=== PATIENT | female | born 1955 | race Caucasian/White ===

== ENCOUNTER 2018-01-10 15:32 | Outpatient (CLI) | payer OTHER ==
--- NOTE | 2018-01-14 09:02 | Mammography Report ---
Reason: SCREENING MAMMO Procedure Date: 01/10/2018 Accession Number: [id number] / [id number] Procedure: KIM - Screening Mammo w/Sanju CPT Code: FULL RESULT: EXAM: Screening Mammo w/Sanju DATE: 01/10/2018 4:56 PM CLINICAL HISTORY: 62 year-old nulliparous female with history of negative breast biopsy at the age of 20 presents for screening. TECHNIQUE: Bilateral CC and MLO views were obtained. COMPARISON: 04/11/2014, 10/23/2008. FINDINGS: The breasts demonstrate heterogeneously dense fibroglandular parenchyma bilaterally. A well-circumscribed isodense ovoid nodules in appearance suggestive of intramammary lymph node in the inferior right breast at the 5:00 position is stable dating back to 2008, typically benign. Interval development of a coarse typically benign appearing right breast calcification. No suspicious masses, clustered microcalcifications, or regions of architectural distortion are identified. IMPRESSION: Benign findings RECOMMENDATION: Routine annual screening unless otherwise clinically indicated. BIRADS CATEGORY 2: Benign findings STANDARD QUALIFYING STATEMENTS: 1. This examination was not reviewed with the aid of Computer-Aided Detection (CAD). 2. A negative or benign imaging report should not delay biopsy if clinically suspicious findings are present. Consider surgical consultation if warranted. More than 5% of cancers are not identified by imaging. 3. Dense breasts may obscure an underlying neoplasm. 4. This examination was reviewed with the aid of 3D breast imaging (tomosynthesis).
== END 2018-01-10 15:33 | disposition home or self-care (01) ==
LOC: DI 15:32
PROVIDERS: ATTEND Physician Assistant
DX: Z12.31 Encounter for screening mammogram for malignant neoplasm of breast (principal)
CPT/HCPCS: 77063; 77067

== ENCOUNTER 2021-10-20 08:00 | Outpatient (CLI) | payer MEDICARE, OTHER ==
[2021-10-20 16:26] LABS: BASOPHILS % (AUTO) 0.6 %; EOSINOPHILS # (AUTO) 0.2 10^3/uL (0.0-0.7); EOSINOPHILS % (AUTO) 2.4 %; HCT - HEMATOCRIT 41.6 % (37.0-47.0); HGB - HEMOGLOBIN 13.5 g/dL (12.0-16.0); LYMPHOCYTES # (AUTO) 1.3 10^3/uL (1.5-3.5); LYMPHOCYTES % (AUTO) 18.9 %; MEAN CORPUSCULAR HEMOGLOBIN 29.9 pg (27.0-31.0); MEAN CORPUSCULAR HGB CONC 32.5 g/dL (32.0-36.0); MEAN PLATELET VOLUME 11.4 fL (7.9-10.8); MONOCYTES # (AUTO) 0.5 10^3/uL (0.0-1.0); MONOCYTES % (AUTO) 6.6 %; NEUTROPHILS # (AUTO) 5.1 10^3/uL (1.5-6.6); NEUTROPHILS % (AUTO) 71.2 %; PLT - PLATELET COUNT 184 10^3/uL (130-450); RED BLOOD COUNT 4.52 10^6/uL (4.20-5.40); RED CELL DISTRIBUTION WIDTH 11.9 % (12.0-15.0); WHITE BLOOD COUNT 7.1 x10^3/uL (4.8-10.8)
[2021-10-20 16:31] LABS: CREATININE,URINE 22.5 mg/dL; MICROALBUM/CREATININE RATIO,UR 8.9 ug/mg (<30.0); MICROALBUMIN,URINE 0.2 mg/dL (0-300.0)
[2021-10-20 16:36] LABS: ALBUMIN 3.9 g/dL (3.2-5.5); ALBUMIN/GLOBULIN RATIO 1.2 (1.0-2.2); ALKALINE PHOSPHATASE 61 IU/L (42-121); ALT ALANINE AMINOTRANSFERASE 15 IU/L (10-60); AST ASPARTATE AMINOTRANSFERASE 15 IU/L (10-42); BILIRUBIN,TOTAL 0.8 mg/dL (0.2-1.0); BUN - BLOOD UREA NITROGEN 13 mg/dL (6-20); CALCIUM 9.1 mg/dL (8.5-10.3); CARBON DIOXIDE - CO2 30 mmol/L (21-32); CHLORIDE 100 mmol/L (101-111); CHOL/HDL RATIO 3.6 (<4.4); CHOLESTEROL 183 mg/dL; CREATININE 0.8 mg/dL (0.4-1.0); GFR - MDRD 72 (>89); GLUCOSE 131 mg/dL (70-100); HDL CHOLESTEROL 51 mg/dL; LDL CHOLESTEROL,CALCULATED 103 mg/dL; POTASSIUM 4.3 mmol/L (3.5-5.0); SODIUM 138 mmol/L (135-145); TOTAL PROTEIN 7.1 g/dL (6.7-8.2); TRIGLYCERIDES 147 mg/dL; VLDL CHOLESTEROL 29 mg/dL
[2021-10-20 20:22] LABS: ESTIMATED AVERAGE GLUCOSE 143 mg/dL (70-100); HEMOGLOBIN A1c% 6.6 % (4.27-6.07)
== END 2021-10-20 23:59 | disposition home or self-care (01) ==
LOC: LAB.R 08:00
PROVIDERS: ATTEND Internal Medicine
DX: Z00.00 Encounter for general adult medical examination without abnormal findings (principal); F41.9 Anxiety disorder, unspecified; F32.A Depression, unspecified; E11.9 Type 2 diabetes mellitus without complications; A60.00 Herpesviral infection of urogenital system, unspecified; E78.5 Hyperlipidemia, unspecified; I10 Essential (primary) hypertension; M54.50 Low back pain, unspecified; M72.2 Plantar fascial fibromatosis
CPT/HCPCS: 80053; 80061; 82043; 82570; 83036; 83721; 84443; 85025

== ENCOUNTER 2023-05-09 17:19 | Emergency (ER) | payer MEDICARE ==
--- NOTE | 2023-05-09 18:05 | ED Physician Documentation ---
History of Present Illness - Stated complaint Stated Complaint: FACE NUMBNESS/HIGH BP - Chief complaint Chief Complaint: Neuro - Additonal information Additional information: 68-year-old female presents emergency department with paresthesias to the left portion of her face that has now fully resolved. Patient says that she realized she missed her blood pressure medication yesterday and she has been quite hypertensive throughout the day checking her blood pressure frequently. The left facial paresthesia does not stay constantly she noticed that for a couple hours then it fully resolved and then she rechecked her blood pressure and it was high again and then she noticed the left facial paresthesias, and again. She has no unilateral weakness no facial droop able to speak in full sentences she denies any chest pain shortness of breath. She does endorse also in chronic paresthesia to the left hand but she says that this has been unchanged for months. PD PAST MEDICAL HISTORY - Past Medical History Cardiovascular: Hypertension, High cholesterol - Past Surgical History Past Surgical History: No - Present Medications Home Medications: Ambulatory Orders Medication Instructions Recorded Confirmed Metoprolol Tartrate 50 mg PO BID 07/10/15 05/09/23 Simvastatin 40 mg PO DAILY 07/10/15 05/09/23 - Allergies Allergies/Adverse Reactions: Allergies Allergy/AdvReac Type Severity Reaction Status Date / Time No Known Drug Allergies Allergy Verified 05/09/23 17:33 - Social History Does the pt smoke?: No Smoking Status: Never smoker Does the pt have substance abuse?: No - Immunizations Immunizations are current?: Yes PD ED PE NORMAL - Vitals Vital signs reviewed: Yes - General General: Alert and oriented X 3, No acute distress, Well developed/nourished, Other (Obese) - HEENT HEENT: Atraumatic, PERRL, EOMI, Ears normal, Moist mucous membranes, Pharynx benign - Neck Neck: No bony TTP - Cardiac Cardiac: RRR, No murmur, No gallop, Strong equal pulses - Respiratory Respiratory: No respiratory distress, Clear bilaterally - Abdomen Abdomen: Normal bowel sounds, Non tender, Non distended - Derm Derm: Normal color, Warm and dry, No rash - Extremities Extremities: No deformity, Other (Bilateral 2+ pitting edema) - Neuro Neuro: Alert and oriented X 3, account manager relief 2-12 intact, No motor deficit, No sensory deficit, Normal speech Eye Opening: Spontaneous Motor: Obeys Commands Verbal: Oriented GCS Score: 15 - Psych Psych: Other (Very anxious) Results - Vitals Vitals: Vital Signs - 24 hr 05/09/23 05/09/23 05/09/23 17:26 19:30 20:07 Temperature 36.9 C Heart Rate 100 89 89 Respiratory 20 16 16 Rate Blood Pressure 214/100 H 181/102 H 193/103 H O2 Saturation 99 94 94 Oxygen O2 Source Room air - Labs Labs: Laboratory Tests 05/09/23 05/09/23 05/09/23 17:00 17:00 18:47 WBC 6.7 RBC 4.71 Hgb 13.7 Hct 42.4 MCV 90.0 MCH 29.1 MCHC 32.3 RDW 11.7 L Plt Count 174 MPV 10.1 Neut # (Auto) 4.9 Lymph # (Auto) 1.1 L [place] # (Auto) 0.6 Eos # (Auto) 0.0 Baso # (Auto) 0.0 Absolute Nucleated RBC 0.00 Nucleated RBC % 0.0 Sodium 139 Potassium 4.4 Chloride 104 Carbon Dioxide 28 Anion Gap 7.0 BUN 14 Creatinine 0.8 Estimated GFR (MDRD) 72 L Glucose 144 H Calcium 10.1 Magnesium 1.8 Total Bilirubin 0.5 AST 22 ALT 21 Alkaline Phosphatase 58 Troponin I High Sens 4.7 Total Protein 7.4 Albumin 4.4 Globulin 3.0 Albumin/Globulin Ratio 1.5 PD Medical Decision Making - ED course ED course: Patient presents the emergency department for left facial paresthesias that come and go. Patient said that she missed her metoprolol last night and has been checking her blood pressure all day because she is very worried about her hypertension. Her blood pressure has been quite elevated systolically in the 200s which patient says that she has never seen this high before. CBC is unremarkable no leukocytosis no anemia. Chemistry is also fairly unremarkable GFR 74 and other than that all labs are within normal limits. Troponin is found to be 4.7 given that this started first thing in the morning I did not feel the need to do a delta troponin at this time. Patient adamantly declines any shortness of breath no chest pain no nausea or vomiting. Since has been here the paresthesias have not returned. Patient's blood pressure remains hypertensive but she has not taken her evening medications I told her to go ahead and take these now which she has with her. Patient is taking 50 mg of metoprolol Tartar prior to discharge. She also says that she is quite anxious but she says that she has Ativan at home that she is can go home and take to see if this helps calm her down. Patient strongly encouraged to follow-up with primary care provider to only check blood pressures in the morning 1 hour after she is taken her blood pressure medication to see if there needs to be any sort of blood pressure medication adjustment. Patient said that she is also working on her weight because she denies that this also contributes to her hypertension. She is urinating without any difficulty and not worried about a hypertension emergency given that she has no other symptoms no vision changes she is able to urinate without any difficulty and her labs are unremarkable. Patient given strict ER return precautions all questions answered she is completely neurologically intact I am not worried about this being a possible stroke patient told to follow-up with primary care provider any further workup indicated for the symptoms that she is currently describing. Departure - Departure Disposition: 01 Home, Self Care Clinical Impression: Facial paresthesia Instructions: ED Paraesthesias Comments: Thank you for trusting us with your care. We have completed labs including a troponin level to make sure that you are heart is not leaking any cardiac enzymes and everything has come back normal. As we discussed I recommend taking your blood pressure first thing in the morning before you take your blood pressure medications and then 1 hour after you take your blood pressure medication use this data to bring to your primary care provider to see if you need to make any adjustments with your blood pressure medications. I would focus on doing some deep breathing and calming exercises when you are starting to feel anxious and take your Ativan that you have at home as needed. Please come back to the emergency department if you are having worsening numbness and tingling to your face that does not go away and progresses to weakness affecting 1 side of your body, chest pain, shortness of breath, or any other concerning symptoms. Follow-up with your primary care provider to see if your blood pressure medications need to be adjusted. Forms: PCP List Discharge Date/Time: 05/09/23 20:10
[2023-05-09 19:05] LABS: BASOPHILS % (AUTO) 0.4 %; EOSINOPHILS % (AUTO) 0.4 %; HCT - HEMATOCRIT 42.4 % (37.0-47.0); HGB - HEMOGLOBIN 13.7 g/dL (12.0-16.0); LYMPHOCYTES # (AUTO) 1.1 10^3/uL (1.5-3.5); LYMPHOCYTES % (AUTO) 16.8 %; MEAN CORPUSCULAR HEMOGLOBIN 29.1 pg (27.0-31.0); MEAN CORPUSCULAR HGB CONC 32.3 g/dL (32.0-36.0); MEAN PLATELET VOLUME 10.1 fL (7.9-10.8); MONOCYTES # (AUTO) 0.6 10^3/uL (0.0-1.0); MONOCYTES % (AUTO) 8.2 %; NEUTROPHILS # (AUTO) 4.9 10^3/uL (1.5-6.6); NEUTROPHILS % (AUTO) 73.8 %; PLT - PLATELET COUNT 174 10^3/uL (130-450); RED BLOOD COUNT 4.71 10^6/uL (4.20-5.40); RED CELL DISTRIBUTION WIDTH 11.7 % (12.0-15.0); WHITE BLOOD COUNT 6.7 x10^3/uL (4.8-10.8)
[2023-05-09 19:09] LABS: MAGNESIUM 1.8 mg/dL (1.7-2.3)
[2023-05-09 19:25] LABS: ALBUMIN 4.4 g/dL (3.2-5.5); ALBUMIN/GLOBULIN RATIO 1.5 (1.0-2.2); BILIRUBIN,TOTAL 0.5 mg/dL (0.2-1.0); CALCIUM 10.1 mg/dL (8.5-10.3); CREATININE 0.8 mg/dL (0.6-1.3); POTASSIUM 4.4 mmol/L (3.5-4.5); TOTAL PROTEIN 7.4 g/dL (6.4-8.9)
[2023-05-09 20:15] VITALS: BP 193/103; O2SAT 94
== END 2023-05-09 20:10 | disposition home or self-care (01) ==
LOC: ED 17:19
DX: I10 Essential (primary) hypertension (principal); R20.2 Paresthesia of skin
CPT/HCPCS: 36415; 80053; 83735; 84484; 85025; 99283

== ENCOUNTER 2023-05-10 11:07 | Outpatient (CLI) | payer MEDICARE ==
--- NOTE | 2023-05-11 10:33 | Mammography Report ---
BILATERAL DIGITAL SCREENING MAMMOGRAM 3D/2D: 05/10/2023 CLINICAL: Routine screening. Comparison is made to exams dated: 01/10/2018 mammogram and 04/11/2014 mammogram - [facility]. Both breasts are heterogeneously dense, which may obscure small masses (category c / 51-75% glandular tissue). No significant masses, calcifications, or other findings are seen in either breast. There has been no significant interval change. IMPRESSION: NEGATIVE There is no mammographic evidence of malignancy. A 1 year screening mammogram is recommended. Based on the Tyrer Cuzick model (a risk assessment model) the patient's lifetime risk is 9.3% and her 10 year risk is 4.9%. According to the ACR, ACS, and NCCN guidelines, an annual breast MRI exam brandi g with mammogram is recommended if the patient's lifetime risk is 20% or greater. This exam was interpreted at Station ID: [id number]. NOTE: For mammograms, a report in lay terms will be sent to the patient. Approximately 15% of breast malignancies will not be visualized mammographically. In the management of a palpable breast mass, a negative mammogram must not discourage biopsy of a clinically suspicious lesion. Electronically Signed By: Ganga wu/radha:05/10/2023 18:55:40 letter sent: No_Letter ACR BI-RADS Category 1: Negative 3341F PARENCHYMAL PATTERN: (D) - The breast(s) demonstrate(s) heterogeneously dense fibroglandular ori trinh. BI-RADS CATEGORY: (1) - 1 RECOMMENDATION: (ANNUAL) - Recommend routine annual screening mammography. [id number] 1 year screening LATERALITY: (B)
== END 2023-05-10 11:08 | disposition home or self-care (01) ==
LOC: DI 11:07
PROVIDERS: ATTEND Internal Medicine
DX: Z12.31 Encounter for screening mammogram for malignant neoplasm of breast (principal); R92.333 Mammographic heterogeneous density, bilateral breasts

== ENCOUNTER 2023-06-07 12:12 | Outpatient (CLI) | payer MEDICARE ==
[2023-06-07] MEDS ORDERED: iohexoL-300 100 ML VIAL ONE (12:15)
[2023-06-07] MEDS: iohexoL-300 100 ML VIAL IVP ONE (12:38)
--- NOTE | 2023-06-07 20:39 | CT Report ---
PROCEDURE: Head WO INDICATIONS: HYPERTENSION TECHNIQUE: Noncontrast 4.5 mm thick angled axial sections acquired from the foramen magnum to the vertex. For r adiation dose reduction, the following was used: automated exposure control, adjustment of mA and/or kV according to patient size. COMPARISON: Correlation is made with the accompanying imaging. FINDINGS: Image quality: Excellent. CSF spaces: Basal cisterns are patent. No extra-axial fluid collections. Ventricles are normal in size and shape. Brain: No midline shift. No intracranial masses or hemorrhage. [place]-white matter interface is norm al. Age-appropriate brain parenchymal volume loss and chronic small vessel ischemic change can be se en. Skull and face: Calvarium and visualized facial bones are intact, without suspicious lesions. Sinuses: Visualized sinuses and mastoids are clear. IMPRESSION: Unremarkable noncontrast head CT for age. Reviewed by: aMtthew Lopez MD on 06/07/2023 7:38 PM JEAN Approved by: Matthew Lopez MD on 06/07/2023 7:38 PM AKJUAN JOSE Station ID: [id number]
--- NOTE | 2023-06-07 20:41 | CT Report ---
PROCEDURE: Angio Head/Neck INDICATIONS: HYPERTENSION TECHNIQUE: After the administration of intravenous contrast, 1 mm thick sections acquired from the aortic arch t hrough the [place] of [place]. 3-dimensional effpyur-myjtyztkj-cwpvbjhlys (MIP) and/or volume renderin g reformats were acquired of the central intracranial vasculature and neck separately. For radiation dose reduction, the following was used: automated exposure control, adjustment of mA and/or kV acco rding to patient size. CONTRAST: omni 300 100ml COMPARISON: Correlation is made with the accompanying imaging. FINDINGS: Image quality: Diagnostic. HEAD CT: CSF Spaces: Basal cisterns are patent. No extra-axial fluid collections. Ventricles are normal in size and shape. Brain: No significant abnormality is seen for scanning technique. Skull and face: Calvarium and visualized facial bones appear intact, without suspicious lesions. Sinuses: Visualized sinuses and mastoids are clear. HEAD CT ANGIOGRAPHY: Anterior circulation: Intracranial internal carotid arteries are normal in size and flow. The flow within the paired anterior cerebral arteries is normal and symmetric. The flow within the middle cer ebral arteries is normal and symmetric. The anterior communicating artery is seen. No aneurysms are seen. Posterior circulation: Visualized portions of the vertebral arteries demonstrate normal caliber, and join to form a normal appearing basilar artery. Flow within the posterior cerebral arteries is norm al and symmetric. No aneurysms are seen. NECK CT ANGIOGRAPHY: Carotid system: The great vessels demonstrate a conventional anatomy as they arise from the aortic a rch. The origins of the common carotid arteries appear patent. The common carotid arteries demonstr ate normal caliber and courses. The bifurcation regions are both widely patent. The internal caroti d arteries demonstrate normal calibers. There is moderate tortuosity seen of the internal carotid ar teries. Posterior circulation: The origins of the vertebral arteries both appear widely patent. The more garcia perior extracranial portions of both vertebral arteries also demonstrate normal courses and calibers. They join to form a normal appearing basilar artery. Soft tissues: Visualized neck soft tissues demonstrate no suspicious abnormalities. Bones: No suspicious bony lesions. Visualized cervical spine appears normally aligned. IMPRESSION: No significant intracranial arterial abnormality is seen. No significant abnormality is seen within the arteries of the neck. The estimate of stenosis included in the report of the imaging study was calculated using the NASCET method Reviewed by: Matthew Lopez MD on 06/07/2023 7:40 PM AKDT Approved by: Matthew Lopez MD on 06/07/2023 7:40 PM JEAN Station ID: [id number]
== END 2023-06-07 12:13 | disposition home or self-care (01) ==
LOC: DI 12:12
PROVIDERS: ATTEND Internal Medicine
DX: I10 Essential (primary) hypertension (principal); R20.0 Anesthesia of skin
CPT/HCPCS: 70450; 70496; 70498; Q9967